=== PATIENT | female | born 1980 | race Caucasian/White ===

== ENCOUNTER → 2016-10-30 | Outpatient (CLI) | payer BC ==
[~2016-10-30] MED LIST: BUPROBAN150 MG PO; CYTOMEL 2525 MCG/TAB; DESYREL 50MG50 MG PO; KLONOPIN 0.5MG0.5 MG PO; LAMICTAL ODT50 MG MM; LORTAB 7.5/5001 TAB PO; MOBIC 7.5MG7.5 MG PO; PRILOSEC 20MG20 MG PO; PRO-FAST HS18.75 MG PO
== END ==
LOC: BHSO 15:57
DX: F41.1 Generalized anxiety disorder (principal)

== ENCOUNTER → 2017-04-24 | Outpatient (CLI) | payer BC | LOC: COL.VAS 09:15 | DX: R06.09 Other forms of dyspnea (principal); R53.83 Other fatigue ==

== ENCOUNTER → 2017-05-01 | Outpatient (CLI) | payer BC | LOC: BHSO 10:15 | DX: Z01.89 Encounter for other specified special examinations (principal) ==

== ENCOUNTER → 2017-05-04 | Outpatient (CLI) | payer BC | LOC: COL.PUL 07:51 | DX: R06.00 Dyspnea, unspecified (principal); R53.83 Other fatigue ==

== ENCOUNTER → 2017-07-07 | Outpatient (CLI) | payer BC | LOC: COL.RAD 09:32 | DX: R10.9 Unspecified abdominal pain (principal); Z90.49 Acquired absence of other specified parts of digestive tract ==

== ENCOUNTER → 2018-01-29 | Outpatient (CLI) | payer BC | LOC: BHSO 14:15 | DX: F33.42 Major depressive disorder, recurrent, in full remission (principal) | CPT/HCPCS: G0463 ==

== ENCOUNTER → 2018-07-16 | Outpatient (CLI) | payer BC | LOC: BHSO 14:35 | DX: F33.42 Major depressive disorder, recurrent, in full remission (principal) | CPT/HCPCS: G0463 ==

== ENCOUNTER → 2018-08-17 | Outpatient (CLI) | payer BC | LOC: MC.RAD 14:07 | DX: Z12.31 Encounter for screening mammogram for malignant neoplasm of breast (principal) ==

== ENCOUNTER 2018-09-02 13:51 | Day surgery (SDC) | payer BC ==
[~2018-09-02] VITALS: Ht 165.1 cm; Wt 57.8 kg
[2018-09-02 14:13] VITALS: BP 113/87; PULSE 78; TEMP 98.2
[2018-09-02] MEDS ORDERED: PROVENTIL0.09 MG/A1 IH (14:13)
[2018-09-02 15:25] VITALS: BP 112/77; PULSE 88; TEMP 98
[2018-09-02 15:40] VITALS: BP 109/72; PULSE 81
[2018-09-02 15:50] VITALS: BP 107/71; PULSE 63
== END 2018-09-02 16:10 | disposition home or self-care (01) ==
LOC: SDCO 13:51
DX: R19.7 Diarrhea, unspecified (principal); K22.70 Barrett's esophagus without dysplasia; K29.30 Chronic superficial gastritis without bleeding; J45.909 Unspecified asthma, uncomplicated; D64.9 Anemia, unspecified; F32.9 Major depressive disorder, single episode, unspecified; R53.82 Chronic fatigue, unspecified; K21.0 Gastro-esophageal reflux disease with esophagitis; Z90.49 Acquired absence of other specified parts of digestive tract; Z90.710 Acquired absence of both cervix and uterus
CPT/HCPCS: J2250; J2405; J3010; J7030

== ENCOUNTER → 2019-01-13 | Outpatient (CLI) | payer BC ==
[~2019-01-13] MED LIST changes: +PROVENTIL0.09 MG/A1 IH
== END ==
LOC: BHSO 15:58
DX: F33.42 Major depressive disorder, recurrent, in full remission (principal)
CPT/HCPCS: G0463

== ENCOUNTER → 2019-07-15 | Outpatient (CLI) | payer BC | LOC: BHSO 16:05 | DX: F33.41 Major depressive disorder, recurrent, in partial remission (principal) | CPT/HCPCS: G0463 ==

== ENCOUNTER → 2020-01-04 | Outpatient (CLI) | payer BC | LOC: COL.RAD 06:14 | DX: R19.09 Other intra-abdominal and pelvic swelling, mass and lump (principal); R10.9 Unspecified abdominal pain ==

== ENCOUNTER 2022-04-03 09:54 | Outpatient (RCR) | payer BC ==
[~2022-04-03] VITALS: Ht 165.1 cm; Wt 58.2 kg
[2022-04-03 10:31] VITALS: BP 99/60; PULSE 87; TEMP 97.9
[2022-04-03] MEDS ORDERED: WELLBUTRIN XL300 M1 PO (10:50)
[2022-04-03] MEDS ORDERED: CYANOCOBAL1000 MCG/M IM (10:50)
[2022-04-03] MEDS ORDERED: ULTRAVATE CREAM15 GM TP (10:51)
[2022-04-03] MEDS ORDERED: VALIUM 5MG T5 MG/TAB PO (10:51)
[2022-04-03] MEDS ORDERED: CYTOMEL0.05 MG PO (10:52)
[2022-04-03] MEDS ORDERED: PLAQUENIL 200M200 MG PO (10:52)
[2022-04-03] MEDS ORDERED: MOBIC 7.5MG7.5 MG PO (10:53)
[2022-04-03] MEDS ORDERED: ADIPEX-P37.5 M2 PO (10:54)
[2022-04-03] MEDS ORDERED: CELLCEPT 5500 MG/TAB PO (10:54)
[2022-04-03] MEDS ORDERED: IMITREX50 MG PO (10:55)
[2022-04-03] MEDS ORDERED: PREDNISONE 5MG5 MG PO (10:55)
[2022-04-03] MEDS ORDERED: BENLYSTA200 MG/1 M SQ (10:56)
[2022-04-03 11:41] VITALS: BP 99/61; PULSE 81
--- NOTE | 2022-04-03 11:41 | NUR ---
Pt remains free of complaints during 1 hr post injection obs period. Gait steady, she is escorted out to elevator.
== END 2022-04-03 11:42 | disposition home or self-care (01) ==
LOC: EUO 09:54
DX: U07.1 COVID-19 (principal)
CPT/HCPCS: M0220

== ENCOUNTER → 2022-07-17 | Outpatient (CLI) | payer OTHER ==
[~2022-07-17] MED LIST changes: +ADIPEX-P37.5 M2 PO; +BENLYSTA200 MG/1 M SQ; +CELLCEPT 5500 MG/TAB PO; +CYANOCOBAL1000 MCG/M IM; +CYTOMEL0.05 MG PO; +IMITREX50 MG PO; +PLAQUENIL 200M200 MG PO; +PREDNISONE 5MG5 MG PO; +ULTRAVATE CREAM15 GM TP; +VALIUM 5MG T5 MG/TAB PO; +WELLBUTRIN XL300 M1 PO
== END ==
LOC: MC.RAD 08:40
DX: Z12.31 Encounter for screening mammogram for malignant neoplasm of breast (principal)

== ENCOUNTER → 2024-06-16 | Outpatient (CLI) | payer BC | LOC: MC.RAD 10:15 | DX: Z12.31 Encounter for screening mammogram for malignant neoplasm of breast (principal) ==